=== PATIENT | female | born 1995 | race African-American/Black ===

== ENCOUNTER 2017-06-16 16:05 | Emergency (ER) | payer BC, MEDICAID ==
[~2017-06-16] VITALS: Ht 172.7 cm; Wt 105.0 kg
[2017-06-16 16:39] VITALS: BP 141/79
[2017-06-16] MEDS ORDERED: [UNRECOGNIZED DRUG - REMARK] (16:45)
== END 2017-06-16 22:48 | disposition left against medical advice (07) ==
LOC: ER 16:05
DX: R50.9 Fever, unspecified (principal); Z53.21 Procedure and treatment not carried out due to patient leaving prior to being seen by health care provider